=== PATIENT | male | born 1950 | race Caucasian/White ===

== ENCOUNTER 2016-12-12 10:14 | Observation (INO) | payer MEDICARE ==
[~2016-12-12] VITALS: Ht 185.4 cm; Wt 93.3 kg
[~2016-12-12 10:14] MED LIST: ABAT125S SUBQ; ASPI325T32 PO; CHOL200047 PO; CYCL1DRO BOTH_EYES; DOXY100T2 PO; HYDR200T5 PO; INSU100I13 SUBQ; INSU100I18 SUBQ; IPRA15SP NASAL; KETO120S3 EXTERNAL; LACT1CAP67 PO; LEFL20TA18 PO; METH5TAB3 PO; METO-272; OXYC1TAB24 PO; PANT40TA3 PO; POTA10TA7 PO; PRAV80TA2 PO; PRE10 PO; RNT300T PO; ROB500 PO; SITA1TAB6 PO; SULF1TAB35 PO; TAMS0.4C29 PO
[2016-12-12 10:22] VITALS: BP 99/69; PULSE 103; RESP 28; O2SAT 100
[2016-12-12 11:08] LABS: BASOPHILS % (AUTO) 1.9 % (0-3); EOSINOPHILS % (AUTO) 4.2 % (0-5); MONOCYTES % (AUTO) 12.5 % (4-12); Mean Corpuscular Volume 81.7 fL (81-100); Platelet Count 144 bil/L (150-400)
[2016-12-12 11:38] LABS: Magnesium 1.5 mg/dL (1.6-2.6)
--- NOTE | 2016-12-12 12:05 | ED.REPORT ---
HPI-NVD Date of Service Dec 12, 2016 ED Provider: Anastasia Barbour History of Present Illness: nausea , vomiting , diarrhea for 2 week. primary care is michi, last seen or Saturday, sent to the ER , given medication for nausea, not helping, zofran. no diarrhea recently. Nursing Notes Stated Complaint: DEHYDRATED/NAUSEA/VOMITING Chief Complaint: General Complaint Nursing Notes Reviewed: Yes Allergies: Coded Allergies: No Known Allergies (Verified Allergy, Unknown, 06/04/16) Scheduled Abatacept (Orencia) 125 Mg/1 Ml Syringe 125 MG SUBQ weekly on saturday Aspirin (Aspirin) 325 Mg Tablet 325 MG PO QAM Cholecalciferol (Vitamin D3) (Vitamin D3) 2,000 Unit Capsule 4,000 UNIT PO QPM Cyclosporine (Restasis) 1 Each Droperette 1 EACH BOTH_EYES BID Doxycycline Hyclate (Doxycycline Hyclate) 100 Mg Tablet 100 MG PO QPM Hydroxychloroquine Sulfate (Hydroxychloroquine Sulfate) 200 Mg Tablet 400 MG PO QPM Insulin Glargine (Lantus U100 Solostar Insulin Pen) 100 Unit/1 Ml Insuln.pen 48 UNIT SUBQ QPM-INSULIN Ketoconazole (Ketoconazole) 120 Ml Shampoo 120 ML EXTERNAL twice a week Lactobacillus Combination No.4 (Probiotic) 1 Each Capsule 1 EACH PO DAILY Leflunomide (Leflunomide) 20 Mg Tablet 20 MG PO QPM Methadone (Methadone) 5 Mg Tablet 5 MG PO TID Methocarbamol (Methocarbamol) 500 Mg Tablet 1,000 MG PO HS Metoprolol Succinate ER (Metoprolol Succinate ER) 50 Mg Tab.er.24h [address] (Pantoprazole DR) 40 Mg Tablet.dr 40 MG PO QPM Potassium Chloride ER (Klor-Con 10) 10 Meq Tablet.er 10 MEQ PO QPM Pravastatin (Pravastatin) 80 Mg Tablet 80 MG PO HS Prednisone (PredniSONE) 10 Mg Tablet 10 MG PO QAM Ranitidine (Zantac) 300 Mg Tab 300 MG PO HS Sitagliptin/Metformin 50-1000 mg (Janumet 50-1000 mg) 1 Each Tablet 1 EACH PO QPM Sulfamethoxazole/Trimeth 800-160 mg (Bactrim DS 800-160 mg) 1 Each Tablet 1 EACH PO MOWEFR Tamsulosin ER (Tamsulosin ER) 0.4 Mg Cap.er.24h 0.8 MG PO QPM Scheduled PRN Insulin Lispro (HumaLOG U100 Insulin Pen) 100 Unit/1 Ml Insuln.pen 0-8 UNITS SUBQ TIDWM PRN PRN hyperglycemia Ipratropium [place] (Ipratropium [place] 0.06% Nasal) 15 Ml [place] 1 SPRAY NASAL TID PRN PRN nasal congestion oxyCODONE-Acetaminophen 5-325 mg (oxyCODONE-Acetaminophen 5-325 mg) 1 Each Tablet 1-2 TABLET PO q6 hrs PRN PRN For Pain General Time Seen by MD: 12:02 Chief Complaint Nausea, Vomiting, Diarrhea Hx Obtained From: Patient Onset Occurred: More than a week ago... (2 weeks) Symptom Duration: Since onset Vomiting: Vomiting 4-6 episodes Diarrhea: Diarrhea 1-3 episodes (more if he attempts to eat) Past Medical History Past Medical History Notes: seen at [facility] last , sent by michi, given fluids. Started to feel better but now worse again Past Medical History MRSA Chronic back pain RA Reports: Coronary artery disease, Diabetes mellitus Past Surgical History back surgery x2 Smoking History Former Smoker Social History Alcohol Use: Denies alcohol use Drug Use: Denies drug use Other Social History: Good social support, Ambulatory Status Independent Review of Systems Basic Review of Systems Eyes: Vision NL : No dysuria, No frequency Hematologic: No bleeding Psychiatric: Normal thought content Physical Exam Initial Vital Signs Vital Signs (First) Date Time Temp Pulse Resp B/P Pulse Ox O2 Delivery O2 Flow Rate FiO2 12/12/16 10:22 36.0 103 28 99/69 100 Room Air Initial VS: Reviewed, Vital signs abnormal Head / Eyes: Atraumatic, Normocephalic, PERRL ENT: Mucous membranes moist, Conjunctiva normal, No scleral icterus Neck: Supple, Non-tender, Full range of motion Respiratory: Breath sounds normal, Clear to auscultation, No respiratory distress Cardiovascular: Regular rate & rhythm, Heart sounds normal, Intact distal pulses Back: No CVA tenderness Lymphatic: No lymphadenopathy Extremities: Vascular intact, Neuro intact, No swelling, No tenderness Skin: Warm, Dry, No cyanosis Neurologic: Alert, Oriented, Nonfocal Psychiatric: Mood/affect normal, Behavior normal, Normal thought content General/Constitutional: Awake, Alert Distress / Hydration: Positive: Distress mild Abdomen: Atraumatic, Soft, Non-tender, McBurney's non-tender Bowel Sounds / Distention: Positive: Bowel sounds hypoactive Respiratory / Chest: Atraumatic, Breath sounds NL, Breath sounds = bilat Cardiovascular: Heart rate NL, Regular rhythm, Heart sounds NL, No gallop Interpretation & Diagnostics Interpretation & Diagnostics: FINDINGS: Image quality: Excellent. ABDOMEN: Lung bases: There is a 5 mm nodule in the left lung base, unchanged since 02/20/15. Lucencies at lung bases are likely emphysematous bullae or blebs. Lung bases are clear. Heart size is normal. Solid organs: Liver and spleen are normal in size and enhancement. Gallbladder is normal. Biliary system is non dilated. Pancreas enhances normally. No adrenal nodules. Kidneys demonstrate normal size and enhancement, without hydronephrosis. Peritoneum and bowel: Bowel loops demonstrate normal wall thickness and caliber. There are scattered colonic diverticula. No evidence for active diverticulitis. Appendix is normal. No free fluid or air. Nodes and vessels: No retroperitoneal or mesenteric adenopathy by size criteria. Aorta and inferior vena cava are normal in size. Miscellaneous: No ventral hernias. PELVIS: Genitourinary: Bladder wall thickness is normal. Miscellaneous: No inguinal hernias or adenopathy. Bones: No suspicious bony lesions. No vertebral body compression fractures. There is scoliosis. Severe degenerative disc disease and facet arthropathy in lumbar spine IMPRESSION: 1. No definitive CT findings to explain vomiting and diarrhea. 2. Diverticulosis. No active diverticulitis. 3. A 5 mm nodule in the left lower lobe, which is stable since 03/19/2015 and most likely benign. Fleischner Society criteria for SOLID lung nodule followup. Nodule size (mm)Low-risk patientHigh-risk [id number] follow-up neededFollow-up at 12 mo; if no change, no further follow-up>[id number] CT at 12 mo; if no change, no further follow-up needed.Initial follow-up CT at 6-12 mo, then 18-24 mo if no change. >6-8Initial follow-up CT at 6-12 mo, then 18-24 mo if no change. Initial follow-up CT at 3-6 mo, then 9-12 mo and 24 mo if no change. >8Follow-up CT at 3, 9, 24 mo. Or PET and/or biopsy.Same as for low-risk pts. Dictated by: Marta Wakefield M.D. on 12/12/2016 at 13:47 Approved by: Marta Wakefield M.D. on 12/12/2016 at 13:57 Lab Results Interpretation Result Diagram: 12/12/16 1104 12/12/16 1104 Test 12/12/16 11:04 12/12/16 15:07 White Blood Count 5.3th/mm3 (3.8-10.1) Red Blood Count 5.64mil/mm3 (4.40-5.80) Hemoglobin 15.8g/dL (13.8-17.2) Hematocrit 46.1% (41.0-50.0) Mean Corpuscular Volume 81.7fL (81-100) Mean Corpuscular Hemoglobin 28.0pg (27.0-35.0) Mean Corpuscular Hemoglobin Concent 34.3% (32.0-37.0) Red Cell Distribution Width 14.4% (12.3-15.4) Platelet Count 144bil/L (150-400) Neutrophils (%) (Auto) 54.0% (40-74) Lymphocytes (%) (Auto) 27.2% (14-46) Monocytes (%) (Auto) 12.5% (4-12) Eosinophils (%) (Auto) 4.2% (0-5) Basophils (%) (Auto) 1.9% (0-3) Sodium Level 133mEq/L (134-144) Potassium Level 3.3mEq/L (3.5-5.2) Chloride Level 90mEq/L (97-108) Carbon Dioxide Level 24mmol/L (18-29) Blood Urea Nitrogen 17mg/dL (8-27) Creatinine 1.05mg/dL (0.76-1.27) Estimat Glomerular Filtration Rate 75mL/min (>59) Glucose Level 170mg/dL (60-99) Calcium Level 8.6mg/dL (8.5-10.1) Magnesium Level 1.5mg/dL (1.6-2.6) Total Bilirubin 0.6mg/dL (0.0-1.2) Aspartate Amino Transf (AST/SGOT) 5U/L (0-50) Alanine Aminotransferase (ALT/SGPT) 5U/L (0-44) Alkaline Phosphatase 108U/L (25-160) Total Protein 5.8g/dL (6.4-8.4) Albumin 3.4g/dL (3.4-5.0) Re-Eval/Medical Decision Med Decision/Clinical Course received 2 liters of fluid and reglan, patient reporting no improvement. With 2nd ER visit in less than a week, no findings on CT, stool studies still pending, admission is best choice. Differential Diagnosis: Positive: Appendicitis, Dehydration, Enteritis, Gastritis, Pancreatitis Discharge & Departure Impression: Primary Impression: Nausea & vomiting Vomiting type: unspecified Additional Impressions: Diarrhea Dehydration Disposition: ADMITTED TO HOSPITAL Referrals: Darrion Villa MD (PCP) EDSupervising Provider for APC: Rian Gomes MD copies to: Darrion Villa MD, Sue ARNP Dec 12, 2016 12:05
[2016-12-12] MEDS ORDERED: 0.9% Sodium Chloride 1,000 ML IV ONE ×2 (12:15→14:50)
[2016-12-12] MEDS ORDERED: MetoCLOpramide 5 mg/mL 2 mL Inj IVPUSH ONE (12:15)
[2016-12-12 13:50] VITALS: BP 128/77; PULSE 79; RESP 16; O2SAT 97
--- NOTE | 2016-12-12 13:58 | DRSVH ---
PROCEDURE: CT ABDOMEN AND PELVIS WITH CONTRAST (PNL-7102) INDICATIONS: vomiting diarrhea TECHNIQUE: After the administration of intravenous contrast, 5 mm thick sections acquired from the diaphragm to the symphysis. 5 mm coronal and sagittal reformats were acquired. For radiation dose reduction, the following was used: automated exposure control, adjustment of mA and/or kV according to patient siz e. COMPARISON: [facility], CT, CHEST W/O CONTRAST, 07/12/2011, 9:00. [facility], CT, ABD/PELVIS W/CON (PNL), 03/19/2015, 16:31. [facility], CT, CT ABD PELVIS W CON, 03/03/2016, 15:19. FINDINGS: Image quality: Excellent. ABDOMEN: Lung bases: There is a 5 mm nodule in the left lung base, unchanged since 02/20/15. Lucencies at lung bases are likely emphysematous bullae or blebs. Lung bases are clear. Heart size is normal. Solid organs: Liver and spleen are normal in size and enhancement. Gallbladder is normal. Biliary system is non dilated. Pancreas enhances normally. No adrenal nodules. Kidneys demonstrate normal size and enhancement, without hydronephrosis. Peritoneum and bowel: Bowel loops demonstrate normal wall thickness and caliber. There are scattere d colonic diverticula. No evidence for active diverticulitis. Appendix is normal. No free fluid or ai r. Nodes and vessels: No retroperitoneal or mesenteric adenopathy by size criteria. Aorta and inferior vena cava are normal in size. Miscellaneous: No ventral hernias. PELVIS: Genitourinary: Bladder wall thickness is normal. Miscellaneous: No inguinal hernias or adenopathy. Bones: No suspicious bony lesions. No vertebral body compression fractures. There is scoliosis. Se dario degenerative disc disease and facet arthropathy in lumbar spine IMPRESSION: 1. No definitive CT findings to explain vomiting and diarrhea. 2. Diverticulosis. No active diverticulitis. 3. A 5 mm nodule in the left lower lobe, which is stable since 03/19/2015 and most likely benign. Fleischner Society criteria for SOLID lung nodule followup. Nodule size (mm)Low-risk patientHigh-risk [id number] follow-up neededFollow-up at 12 mo; if no malik e, no further follow-up>[id number] CT at 12 mo; if no change, no further follow-up needed.Initial f ollow-up CT at 6-12 mo, then 18-24 mo if no change. >6-8Initial follow-up CT at 6-12 mo, then 18-24 mo if no change. Initial follow-up CT at 3-6 mo, then 9-12 mo and 24 mo if no change. >8Follow-up CT at 3, 9, 24 mo. Or PET and/or biopsy.Same as for low-risk pts. Dictated by: Marta Wakefield M.D. on 12/12/2016 at 13:47 Approved by: Marta Wakefield M.D. on 12/12/2016 at 13:57
[2016-12-12] MEDS ORDERED: D5 0.45% NaCl + KCl 20 mEq/L 1,000 ML IV SCH (15:32)
[2016-12-12 15:35] VITALS: BP 124/74; PULSE 79; RESP 18; O2SAT 98
[2016-12-12] MEDS ORDERED: Ondansetron 2 mg/mL 2 mL Inj IVPUSH PRN ×2 (15:35→18:10)
[2016-12-12] MEDS ORDERED: Alum-Mag Hydrox-Simeth 30 mL Suspension PO PRN ×2 (15:35→18:10)
[2016-12-12 15:48] VITALS: BP 108/76; PULSE 86; RESP 18; O2SAT 100
--- NOTE | 2016-12-12 16:30 | NUR ---
Admission Patient admitted to [facility] [place] accompanied by . Oriented to room and unit. Denies any N/V at this time. On clear liquid diet. Pain level of 4/10. Alert and oriented x3. SBA to the bathroom. Patient made comfortable, will continue to monitor.
[2016-12-12] MEDS ORDERED: Magnesium Sulf 2 Gm/50mL Water 2 GM in IV Premix 1 EACH IV ONE (18:10)
[2016-12-12] MEDS ORDERED: KCl 40 mEq/D5W 500 mL 40 MEQ in IV Premix 500 EACH IV ONE (18:10)
[2016-12-12] MEDS ORDERED: Polyethylene Glycol (PEG) 17 Gm Powder PO PRN (18:10)
[2016-12-12 18:25] VITALS: BP 127/66; PULSE 84; RESP 18; O2SAT 100
[2016-12-12] MEDS ORDERED: Ipratropium 0.03% 30 mL Nasal Spray Bottle NASAL PRN (18:25)
--- NOTE | 2016-12-12 18:55 | PCM.HPMED ---
Subjective Date of Service Dec 12, 2016 Primary Provider: Admitting Physician: Tim Rocha MD Primary Care Physician: Darrion Villa MD Attending Physician: Tim Rocha MD Chief Complaint: nausea, vomiting, diarrhea History of Present Illness: 66 year old male with complicated past medical history notable for diabetes mellitus and rheumatoid arthritis presents with complaints of intractable nausea , vomiting and diarrhea for the past 12 days. [place] [facility] [place] and was treated with IVF in the ED which made him feel better at the time but his symptoms soon returned after going home. He was instructed by his PCP to return to ED today. He reports some associated chills but no fever. He denies any hematemesis, coffee ground emesis, hematochezia, melena, or abdominal pain. He denies any recent travel, change in medication, or sick contacts. He also reports some lightheadedness with sitting up or standing but denies any loss of consciousness. Allergies Coded Allergies: No Known Allergies (Verified Allergy, Unknown, 06/04/16) Home Medications Sulfamethoxazole/Trimeth = (Bactrim DS 800-160 mg) 1 Each PO MOWEFR Tamsulosin ER 0.4 Mg Cap.Er.24h 0.8 Mg PO QPM 30 Days Metoprolol Succinate ER 50 Mg Tab.Er.24h 50 Mg QPM Pravastatin 80 Mg Tablet 80 Mg PO HS Methadone 5 Mg Tablet 5 Mg PO TID oxyCODONE-Acetaminophen 5-325 mg 1-2 Tablet PO q6 hrs PRN Potassium Chloride ER 10 Meq Tablet.Er (Klor-Con 10) 10 Meq PO QPM Cyclosporine (Restasis) 1 Each BOTH_EYES BID Ipratropium [place] 15 Ml [place] (Ipratropium [place] 0.06% Nasal) 1 [place] NASAL TID PRN Lactobacillus Combination No.4 (Probiotic) 1 Each PO DAILY Pantoprazole DR 40 Mg Tablet.Dr 40 Mg PO QPM Ranitidine 300 Mg Tab 300 Mg PO HS Insulin Glargine 100 Unit/1 Ml Insuln.Pen (Lantus U100 Solostar Insulin Pen) 48 Unit SUBQ QPM Insulin Lispro 100 Unit/1 Ml Insuln.Pen (HumaLOG U100 Insulin Pen) 0-8 Units SUBQ TIDWM PRN Cholecalciferol (Vitamin D3) 4,000 Unit PO QPM Leflunomide 20 Mg PO QPM Exam Vital Signs & I/O Vital Sign- Last 8 Hours Date Time Temp Pulse Resp B/P Pulse Ox O2 Delivery O2 Flow Rate FiO2 12/12/16 18:25 36.6 84 18 127/66 100 Room Air 12/12/16 15:48 36.6 86 18 108/76 100 Room Air 12/12/16 15:35 79 18 124/74 98 Room Air 12/12/16 13:50 36.9 79 16 128/77 97 Room Air Lab & Micro Results Laboratory Tests Test 12/12/16 11:04 12/12/16 15:07 White Blood Count 5.3th/mm3 (3.8-10.1) Red Blood Count 5.64mil/mm3 (4.40-5.80) Hemoglobin 15.8g/dL (13.8-17.2) Hematocrit 46.1% (41.0-50.0) Mean Corpuscular Volume 81.7fL (81-100) Mean Corpuscular Hemoglobin 28.0pg (27.0-35.0) Mean Corpuscular Hemoglobin Concent 34.3% (32.0-37.0) Red Cell Distribution Width 14.4% (12.3-15.4) Platelet Count 144bil/L (150-400) Neutrophils (%) (Auto) 54.0% (40-74) Lymphocytes (%) (Auto) 27.2% (14-46) Monocytes (%) (Auto) 12.5% (4-12) Eosinophils (%) (Auto) 4.2% (0-5) Basophils (%) (Auto) 1.9% (0-3) Sodium Level 133mEq/L (134-144) Potassium Level 3.3mEq/L (3.5-5.2) Chloride Level 90mEq/L (97-108) Carbon Dioxide Level 24mmol/L (18-29) Blood Urea Nitrogen 17mg/dL (8-27) Creatinine 1.05mg/dL (0.76-1.27) Estimat Glomerular Filtration Rate 75mL/min (>59) Glucose Level 170mg/dL (60-99) Lactic Acid Level 3.3mmol/L (0.4-2.0) 1.2mmol/L (0.4-2.0) Calcium Level 8.6mg/dL (8.5-10.1) Magnesium Level 1.5mg/dL (1.6-2.6) Total Bilirubin 0.6mg/dL (0.0-1.2) Aspartate Amino Transf (AST/SGOT) 5U/L (0-50) Alanine Aminotransferase (ALT/SGPT) 5U/L (0-44) Alkaline Phosphatase 108U/L (25-160) Total Protein 5.8g/dL (6.4-8.4) Albumin 3.4g/dL (3.4-5.0) Microbiology 12/12/16 Campylobacter (PCR) - Final, Complete Not Detected 12/12/16 Clostridium difficile Toxin A&B (M) - Final, Complete Not Detected 12/12/16 Plesiomonas shigelloides (PCR) - Final, Complete Not Detected 12/12/16 Salmonella (PCR)(KRIS) - Final, Complete Not Detected 12/12/16 Yersinia enterocolitica (PCR) - Final, Complete Not Detected 12/12/16 Vibrio Species (PCR) - Final, Complete Not Detected 12/12/16 Vibrio Cholerae (PCR) - Final, Complete Not Detected 12/12/16 Enteroaggregative E. coli (PCR) - Final, Complete Not Detected 12/12/16 Enteropathogenic E. coli (PCR) - Final, Complete Not Detected 12/12/16 Enterotoxigenic E. coli (PCR) - Final, Complete Not Detected 12/12/16 E. coli Shiga-like Toxin (PCR) - Final, Complete Not Detected 12/12/16 Escherichia coli 0157 (PCR) - Final, Complete Not Detected 12/12/16 Enteroinvasive E. coli/Shigella PCR - Final, Complete Not Detected 12/12/16 Cryptosporidium (PCR) - Final, Complete Not Detected 12/12/16 Cyclospora cayetanensis (PCR) - Final, Complete Not Detected 12/12/16 Entamoeba histolytica (PCR) - Final, Complete Not Detected 12/12/16 Giardia lamblia (PCR) - Final, Complete Not Detected 12/12/16 Adenovirus Type F 40/41 (PCR) - Final, Complete Not Detected 12/12/16 Astrovirus (PCR) - Final, Complete Not Detected 12/12/16 Norovirus (PCR) - Final, Complete Not Detected 12/12/16 Rotavirus A (PCR) - Final, Complete Not Detected 12/12/16 Sapovirus I/II/IV/V (PCR) - Final, Complete Result Diagram: 12/12/16 1104 12/12/16 1104 Review of Systems: Constitutional: Negative, except as otherwise mentioned in the history above. Ophthalmologic: Negative, except as otherwise mentioned in the history above. Cardiovascular: Negative, except as otherwise mentioned in the history above. Respiratory: Negative, except as otherwise mentioned in the history above. Gastrointestinal: Negative, except as otherwise mentioned in the history above. Genitourinary: Negative, except as otherwise mentioned in the history above. Musculoskeletal: Negative, except as otherwise mentioned in the history above. Neurological: Negative, except as otherwise mentioned in the history above. Psychiatric: Negative, except as otherwise mentioned in the history above. Hematologic/Lymphatic: Negative, except as otherwise mentioned in the history above. Allergic/Immunologic: Negative, except as otherwise mentioned in the history above. PMH 1. Coronary artery disease, status post stent deployment in 2001. 2. Rheumatoid arthritis. 3. Benign prostatic hypertrophy. 4. Diabetes mellitus type 2. 5. Chronic low back pain. 6. Hyperlipidemia. 7. Gastroesophageal reflux disease. 8. Hypertension. 9. Ocular rosacea. 10. Vitamin D deficiency. 11. Hospitalization for MRSA toe infection in April 2014. 12. History of pericarditis. 13. History of diverticulitis. 14. Status post carpal tunnel surgery bilaterally. 15. Status post laminectomy at L4, L5. 16. Incision and drainage of the left 3rd toe in April 2014. Family History Significant for myocardial infarction in his father and pulmonary embolism in his mother. Social History Hx Alcohol Use: Yes Alcoholic Drinks Per Day: 1-2 a week. Hx Substance Use: No Smoking Status: Former Smoker (quit more than 20 years ago) Exam Vital Signs Vital Sign - Last Date Time Temp Pulse Resp B/P Pulse Ox O2 Delivery O2 Flow Rate FiO2 12/12/16 18:25 36.6 84 18 127/66 100 Room Air General: Alert, Oriented X3, Cooperative, No Acute Distress Head: Normal Eyes: PERRLA, EOMI, Scleral Anicteric Nose: Mucous Membr Moist/[place] Mouth: Mucous Membr Moist/[place] Neck: Supple Chest & Lungs: Chest Wall Normal, Clear to auscultation & percussion Cardiovascular: Regular Rate/Rhythm Pulses: NL carotid, radial, femoral, DP, PT Abdomen: Non-tender, Non-distended, Normoactive bowel tones, Soft Extremities: No cyanosis/clubbing/edma bilat Skin: Other (no ulcer/rash) Neurological: Grossly Neurologically Intact, Cranial Nerves 2-12 Intact, Normal Speech Lymphatic: Other Lymph Nodes (no lymphadenopathy) Lab and Diagnostics Result Diagram: 12/12/16 1104 12/12/16 1104 X-Rays, CTs and MRIs Date of Service: 12/12/16 1215 PROCEDURE: CT ABDOMEN AND PELVIS WITH CONTRAST (PNL-7102) IMPRESSION: 1. No definitive CT findings to explain vomiting and diarrhea. 2. Diverticulosis. No active diverticulitis. 3. A 5 mm nodule in the left lower lobe, which is stable since 03/19/2015 and most likely benign. Fleischner Society criteria for SOLID lung nodule followup. Nodule size (mm)Low-risk patientHigh-risk [id number] follow-up neededFollow-up at 12 mo; if no change, no further follow-up>6-4Aldrql-pu CT at 12 mo; if no change, no further follow-up needed.Initial follow-up CT at 6-12 mo, then 18-24 mo if no change. >6-8Initial follow-up CT at 6-12 mo, then 18-24 mo if no change. Initial follow-up CT at 3-6 mo, then 9-12 mo and 24 mo if no change. > 8Follow-up CT at 3, 9, 24 mo. Or PET and/or biopsy.Same as for low-risk pts. Dictated by: Marta Wakefield M.D. on 12/12/2016 at 13:47 Approved by: Marta Wakefield M.D. on 12/12/2016 at 13:57 Assessment & Plan 66 year old male with complicated past medical history notable for diabetes mellitus and rheumatoid arthritis presents with complaints of intractable nausea , vomiting and diarrhea for the past 12 days. # Acute Nausea, vomiting and diarrhea, present on admission. - unclear etiology. ? infection vs possible diabetic gastroparesis vs other - f/u pending stool PCR - c/w supportive care including IVF, antiemetics and pain control as needed - clear liquid diet and advance as tolerated # Diabetes mellitus type 2 -will hold the patient's long-acting insulin until able to tolerate PO diet - cover with ISS for now - check HgA1C # Rheumatoid arthritis. chronic. presume stable - c/w home meds - hold prophylactic Bactrim for now # Acute on chronic lumbago - due for back surgery in coming days - c/w home dose methadone - c/w supportive care - PT eval once symptoms more improved # History of coronary artery disease. stable - c/w home meds as tolerated # Acute hypokalemia and hypomagnesemia. poa - replete and f/u # Acute lactic acidosis. poa. - Resolved with IVF now. # History of BPH - c/w Flomax - check UA Expected length of hospital stay at this time is likely 2 midnights but patient will be admitted as observation status for now. Time spent 60 min Rod Guerrero Dec 12, 2016 18:55
[2016-12-12] MEDS ORDERED: COLC0.6C3 PO (19:20)
[2016-12-12] MEDS ORDERED: GABA-502 PO (19:24)
[2016-12-12] MEDS ORDERED: LEVO50TA6 PO (19:26)
[2016-12-12] MEDS ORDERED: MINO100C3 PO (19:28)
[2016-12-12] MEDS ORDERED: POLY17PO6 PO (19:29)
[2016-12-12] MEDS ORDERED: TORS20TA3 PO (19:30)
[2016-12-12] MEDS: Dextrose 5% 0.45% NaCl 1,000 ML IV SCH (20:29)
[2016-12-12] MEDS: RESTASIS OPTH BOTH_EYES SCH (20:30)
[2016-12-12] MEDS: Insulin Human REGular 300 Unit/3 mL Inj SUBQ SCH (21:07)
[2016-12-12 21:08] LABS: APPEARANCE,URINE CLEAR (CLEAR,HAZY); COLOR,URINE YELLOW (YELLOW); OCCULT BLOOD,URINE NEGATIVE (NEGATIVE); UROBILINOGEN,URINE NORMAL (NORMAL)
[2016-12-12 21:25] VITALS: BP 134/72; PULSE 75; RESP 16; O2SAT 98
--- NOTE | 2016-12-12 21:25 | NUR ---
SCD Pt refused to wear SCDs after physical assessment given. "It hurts, I forgot to tell you that." Ambulates independently in room with a steady gait. Will continue ongoing care.
[2016-12-13 03:06] VITALS: BP 134/74; PULSE 109; RESP 18; O2SAT 96
[2016-12-13 05:41] VITALS: BP 122/72; PULSE 76; RESP 18; O2SAT 97
[2016-12-13] MEDS: Dextrose 5% 0.45% NaCl 1,000 ML IV SCH ×2 (06:22→22:02)
[2016-12-13] MEDS: Insulin Human REGular 300 Unit/3 mL Inj SUBQ SCH ×4 (07:30→22:00)
[2016-12-13 08:06] LABS: BASOPHILS % (AUTO) 1.5 % (0-3); MONOCYTES % (AUTO) 15.5 % (4-12); Mean Corpuscular Hemoglobin 28.2 pg (27.0-35.0); Mean Corpuscular Volume 84.1 fL (81-100); NEUTROPHILS % (AUTO) 49.3 % (40-74); Platelet Count 104 bil/L (150-400)
[2016-12-13 08:17] LABS: INR 1.07 ratio
[2016-12-13 08:20] VITALS: BP 132/76; PULSE 76
[2016-12-13] MEDS: MeTOProlol XL 50 mg ER24 Tablet PO SCH (08:25)
[2016-12-13] MEDS: Pantoprazole 4 mg/mL 10 mL Inj IVPUSH SCH (08:25)
[2016-12-13 08:29] LABS: Magnesium 1.8 mg/dL (1.6-2.6)
[2016-12-13] MEDS: RESTASIS OPTH BOTH_EYES SCH ×2 (08:30→20:30)
--- NOTE | 2016-12-13 11:32 | NUR ---
Case Management: BRANDT and Medicare Part D info given and explained to pt and his at bedside at 11:05 am. Copies given to pt and original BRANDT placed in hard chart. JOSE Resendez RN
[2016-12-13 12:50] VITALS: BP 131/75; PULSE 61; RESP 19; O2SAT 100
--- NOTE | 2016-12-13 14:01 | NUR ---
NUTRITION ASSESSMENT: ASSESS: Pt is a 66yo M admitted for N/V/Diarrhea. Pt has been experiencing these symptoms for 2 weeks and has reportedly only been drinking juice, water and Ensure. When spoke with pt he was eating a turkey sandwich with soup. He stated that this was his first solid food meal. PMHX: DM, RA, CAD, HLD, GERD, HTN, Diverticulitis LABS: Reviewed. Glu 132, Ca 7.6, Alb 3.4, A1C 6.1 MEDS: Reviewed. GI: BM 12/13 SKIN: Chet 19 CURRENT WTS: 93.3kg, BMI 27.1kg/m2 DIET: Diabetic. PO 75%x1 meal of CL diet. EST. NEEDS: Kcals: 2330-2800kcal/day (25-30kcal/kg) Pro: 95-110g/day (1.0-1.2g/kg) NUTRITION DIAGNOSIS: 1.) Inadequate oral intake related to altered GI function as evidence by persistent n/v and pt reporting only eating CLx2 weeks prior to admit. NUTRITION INTERVENTION: 1.) Spoke w/ pt and briefly about foods to eat and foods to avoid when experiencing n/v. Handout was provided. Pt at this time does not want any snacks/supps. He wants to see how he is tolerates food first. MONITOR / EVAL: PO, GI, Diet abraham, labs, POC, nutrition status. Will continue to monitor per high nutrition risk guidelines
--- NOTE | 2016-12-13 15:04 | PCM.PNMED ---
Subjective Date of Service Dec 13, 2016 Subjective says feeling much better today. no diarrhea today. some nausea but no vomiting today Exam Vital Signs Vital Sign - Last Date Time Temp Pulse Resp B/P Pulse Ox O2 Delivery O2 Flow Rate FiO2 12/13/16 12:50 36.8 61 19 131/75 100 Room Air Intake and Output 12/12/16 12/12/16 12/13/16 Cumulative From/Thru 15:00 23:00 07:00 12/12/16 10:22 - 12/13/16 05:31 Intake Total 1000 ml 615 ml 1603 ml 3218 ml Output Total 200 ml 380 ml 580 ml Balance 1000 ml 415 ml 1223 ml 2638 ml Intake Oral 400 ml 400 ml IV Total 1000 ml 215 ml 1203 ml 2418 ml TPN/PPN 400 ml 400 ml Output Urine Total 200 ml 380 ml 580 ml Exam General: Alert, Cooperative, No Acute Distress Head: Normal Eyes: Scleral Anicteric Nose: Mucous Membr Moist/[place] Mouth: Mucous Membr Moist/[place] Neck: Supple Chest & Lungs: Chest Wall Normal, Clear to auscultation bilat Cardiovascular: Regular Rate/Rhythm Abdomen: Non-tender, Non-distended, Normoactive bowel tones, Soft Extremities: No cyanosis/clubbing/edema bilat Neurological: Grossly Neurologically Intact, Normal Speech IVs and Medications Medications Reviewed: Medications were reviewed in detail Lab and Diagnostics Result Diagram: 12/13/16 0750 12/13/16 0750 X-Rays, CTs and MRIs Date of Service: 12/12/16 1215 PROCEDURE: CT ABDOMEN AND PELVIS WITH CONTRAST ([id number]) IMPRESSION: 1. No definitive CT findings to explain vomiting and diarrhea. 2. Diverticulosis. No active diverticulitis. 3. A 5 mm nodule in the left lower lobe, which is stable since 03/19/2015 and most likely benign. Fleischner Society criteria for SOLID lung nodule followup. Nodule size (mm)Low-risk patientHigh-risk [id number] follow-up neededFollow-up at 12 mo; if no change, no further follow-up>[id number] CT at 12 mo; if no change, no further follow-up needed.Initial follow-up CT at 6-12 mo, then 18-24 mo if no change. >6-8Initial follow-up CT at 6-12 mo, then 18-24 mo if no change. Initial follow-up CT at 3-6 mo, then 9-12 mo and 24 mo if no change. > 8Follow-up CT at 3, 9, 24 mo. Or PET and/or biopsy.Same as for low-risk pts. Dictated by: Marta Wakefield M.D. on 12/12/2016 at 13:47 Approved by: Marta Wakefield M.D. on 12/12/2016 at 13:57 Assessment & Plan 66 year old male with complicated past medical history notable for diabetes mellitus and rheumatoid arthritis presents with complaints of intractable nausea , vomiting and diarrhea for the past 12 days. # Acute Nausea, vomiting and diarrhea, present on admission. improving with hydration - unclear etiology. ? infection vs possible diabetic gastroparesis vs other - stool PCR negative - c/w supportive care including IVF, antiemetics and pain control as needed - advance as tolerated # Diabetes mellitus type 2 - will hold the patient's long-acting insulin until able to tolerate PO diet - continue to cover with ISS for now - HgA1C 6.1 # Rheumatoid arthritis. chronic. presume stable - c/w home meds - hold prophylactic Bactrim for now # Acute on chronic lumbago - due for back surgery in coming days - c/w home dose methadone - c/w supportive care - PT eval # History of coronary artery disease. stable - c/w home meds as tolerated # Acute hypokalemia and hypomagnesemia. poa - replete and f/u # Acute lactic acidosis. poa. - Resolved with IVF now. # History of BPH - c/w Flomax Dispo: possibly home in am if symptoms continue to improve and able to tolerate general diet GI Prophylaxis: Proton Pump Inhibitor Resuscitation Status: CPR: Attempt Resuscitation (discussed and verified with patient) Time spent 25 min Rod Guerrero Dec 13, 2016 15:04
[2016-12-13] MEDS ORDERED: Potassium Chloride 20 mEq SR Tablet PO ONE (15:05)
--- NOTE | 2016-12-13 17:25 | NUR ---
Social Work Initial Assessment: SW spoke to patient and Charlene at bedside to discuss discharge plan. Patient is a 66 year old male admitted on 12/12/16 for vomiting and diarrhea. Patient PCP as MD Villa. Patient payer as [employer]. Patient resides in [place] in a single [facility] home. Patient states being independent with needs and states assists with care needs. [facility] choice [facility]. Patient has no previous HHC or SNF history. Patient and states having AD and copy to be provided. Patient has a walker for use at home. Patient denied any discharge needs at this time. SW to follow. PLAN: Home with , pending clinical course. No anticipated discharge needs at this time. SW to follow. Alyssa GARCIA Addendum: 12/13/16 at 1729 by [facility] Amended: Links added.
[2016-12-13] MEDS: LEFLUNOMIDE 20 MG PO SCH (17:30)
[2016-12-13 18:06] VITALS: BP 135/73; PULSE 67; RESP 18; O2SAT 99
[2016-12-13 20:36] VITALS: BP 138/81; PULSE 77; RESP 18; O2SAT 95
[2016-12-14 02:05] VITALS: BP 125/72; PULSE 72; RESP 16; O2SAT 95
--- NOTE | 2016-12-14 06:14 | NUR ---
PT has slept well t/o the night. Pain moderately managed with scheduled meds and has not needed anything for BTP. V/S WNL. PT up I to BR. Fluids infusing per order. Taking go po fluids. PT reports some neuropathy in BLE. However, neuro exam was negative as far as strength. PT states that when he gets up his "RLE feels like it is going to collapse." PT refuses to wear his SCD's and understands the risks of not doing so. BG did not need coverage at HS. Will CTM progress.
[2016-12-14 06:44] VITALS: BP 124/77; PULSE 76; RESP 18; O2SAT 95
[2016-12-14] MEDS: Insulin Human REGular 300 Unit/3 mL Inj SUBQ SCH ×4 (07:30→20:39)
[2016-12-14 07:40] LABS: BASOPHILS % (AUTO) 1.5 % (0-3); EOSINOPHILS % (AUTO) 12.2 % (0-5); MONOCYTES % (AUTO) 13.4 % (4-12); Mean Corpuscular Hemoglobin 28.4 pg (27.0-35.0); Mean Corpuscular Volume 85.3 fL (81-100); NEUTROPHILS % (AUTO) 44.6 % (40-74); Platelet Count 103 bil/L (150-400)
[2016-12-14 08:11] LABS: Magnesium 1.7 mg/dL (1.6-2.6)
[2016-12-14] MEDS: RESTASIS OPTH BOTH_EYES SCH ×2 (08:30→20:30)
[2016-12-14 08:38] VITALS: BP 137/79; PULSE 80; RESP 18; O2SAT 95
[2016-12-14] MEDS: MeTOProlol XL 50 mg ER24 Tablet PO SCH (08:40)
[2016-12-14] MEDS: Pantoprazole 4 mg/mL 10 mL Inj IVPUSH SCH (08:40)
[2016-12-14] MEDS ORDERED: Magnesium Sulf 4 Gm/100 mL H2O 4 GM in IV Premix 1 EACH IV ONE (09:35)
[2016-12-14] MEDS: Dextrose 5% 0.45% NaCl 1,000 ML IV SCH (11:00)
[2016-12-14 15:04] VITALS: BP 116/66; PULSE 71; RESP 18; O2SAT 98
--- NOTE | 2016-12-14 15:08 | NUR ---
Social work note - Continued d.c planning IT SUPPORT SPECIALIST met with pt and Pt's - Pt states he is feeling better, MD identifies that he will likely be in the hospital 1-2 more days. Pt plans to go home with , denies any further d/c needs. IT SUPPORT SPECIALIST will follow if needs arise. Plan: Home with in POV. ALYCE Jimenez
[2016-12-14] MEDS: LEFLUNOMIDE 20 MG PO SCH (17:30)
[2016-12-14 19:23] VITALS: BP 133/74; PULSE 77; RESP 17; O2SAT 97
--- NOTE | 2016-12-15 00:26 | PCM.PNMED ---
Subjective Date of Service Dec 14, 2016 Subjective The patient continues to complain of metallic taste in his mouth. He also continues to complain of nausea but no vomiting today. He complains of fairly poor appetite however. He still does not feel well. Exam Vital Signs Vital Sign - Last Date Time Temp Pulse Resp B/P Pulse Ox O2 Delivery O2 Flow Rate FiO2 12/14/16 19:23 37.0 77 17 133/74 97 Room Air Intake and Output 12/14/16 12/14/16 12/15/16 Cumulative From/Thru 15:00 23:00 07:00 12/12/16 10:22 - 12/14/16 19:37 Intake Total 2065 ml 7710 ml Output Total 1230 ml Balance 2065 ml 6480 ml Intake Oral 390 ml 1250 ml IV Total 1675 ml 6060 ml TPN/PPN 400 ml Output Urine Total 1230 ml # Voids 4 8 # Bowel Movements 1 1 Exam General: Patient is in no apparent distress. HEENT: Head is atraumatic and normocephalic. Eyes: Pupils are equally round and reactive to light and accommodation. Extraocular muscles are intact. Sclera are white, anicteric. Subconjunctival mucosa is pink. Ears and nose are unremarkable. Oropharynx: There is no mucosal lesions, there is no thrush, there is no pharyngitis. Neck: Is supple, there are no nodes, or masses or tenderness. Chest: Is clear to auscultation and percussion. There are no rales, rhonchi, wheezes or rubs. Heart: Rate, rhythm is regular. There is no murmur, rub or gallop. Abdomen: Good bowel sounds are present. Abdomen is mildly obese, soft, nontender, no organomegaly or masses were appreciated. Extremities: Are symmetrical and well perfused. There is no edema, there is no cellulitis, no rash. Neurologic: There are no focal neurological deficits. Cranial nerves II through XII are intact. There are no sensory or motor deficits. Psychiatric: Patients mood is calm and shows no sign of agitation. Genital: Deferred Rectal: Deferred Lab and Diagnostics Result Diagram: 12/14/16 0720 12/14/16 0720 Microbiology Stool for gastrointestinal PCR panel is negative X-Rays, CTs and MRIs Date of Service: 12/12/16 1215 PROCEDURE: CT ABDOMEN AND PELVIS WITH CONTRAST ([id number]) IMPRESSION: 1. No definitive CT findings to explain vomiting and diarrhea. 2. Diverticulosis. No active diverticulitis. 3. A 5 mm nodule in the left lower lobe, which is stable since 03/19/2015 and most likely benign. Fleischner Society criteria for SOLID lung nodule followup. Nodule size (mm)Low-risk patientHigh-risk [id number] follow-up neededFollow-up at 12 mo; if no change, no further follow-up>[id number]-[id number] CT at 12 mo; if no change, no further follow-up needed.Initial follow-up CT at 6-12 mo, then 18-24 mo if no change. >6-8Initial follow-up CT at 6-12 mo, then 18-24 mo if no change. Initial follow-up CT at 3-6 mo, then 9-12 mo and 24 mo if no change. > 8Follow-up CT at 3, 9, 24 mo. Or PET and/or biopsy.Same as for low-risk pts. Dictated by: Marta Wakefield M.D. on 12/12/2016 at 13:47 Approved by: Marta Wakefield M.D. on 12/12/2016 at 13:57 Assessment & Plan 66 year old male with complicated past medical history notable for diabetes mellitus and rheumatoid arthritis presents with complaints of intractable nausea , vomiting and diarrhea for the past 12 days. # Acute Nausea, vomiting and diarrhea, present on admission. improving with hydration - unclear etiology. ? infection vs possible diabetic gastroparesis vs other - stool PCR negative - c/w supportive care including IVF, antiemetics and pain control as needed - advance as tolerated # Diabetes mellitus type 2 - will hold the patient's long-acting insulin until able to tolerate PO diet - continue to cover with ISS for now - HgA1C 6.1 # Rheumatoid arthritis. chronic. presume stable - c/w home meds - hold prophylactic Bactrim for now # Acute on chronic lumbago - due for back surgery in coming days - c/w home dose methadone - c/w supportive care - PT eval # History of coronary artery disease. stable - c/w home meds as tolerated # Acute hypokalemia and hypomagnesemia. poa - replete and f/u # Acute lactic acidosis. poa. - Resolved with IVF now. # History of BPH - c/w Flomax Dispo: possibly home in am if symptoms continue to improve and able to tolerate general diet Pain Evaluation: Adequate Pain Control GI Prophylaxis: Proton Pump Inhibitor VTE Prophylaxis: Sub-Q Enoxaparin Resuscitation Status: CPR: Attempt Resuscitation (discussed and verified with patient) Main Mack MD Dec 15, 2016 00:26
[2016-12-15] MEDS: Dextrose 5% 0.45% NaCl 1,000 ML IV SCH ×2 (02:34→05:00)
[2016-12-15 03:02] VITALS: BP 104/71; PULSE 90; RESP 20; O2SAT 95
--- NOTE | 2016-12-15 06:06 | NUR ---
Pain/nausea Continues to have pain though declines morphine wants to stick with just castillo methadone, did accept tylenol once no nausea reported through night
[2016-12-15 06:16] LABS: EOSINOPHILS % (AUTO) 10.5 % (0-5); MONOCYTES % (AUTO) 14.2 % (4-12); Mean Corpuscular Hemoglobin 29.7 pg (27.0-35.0); Mean Corpuscular Volume 81.7 fL (81-100); NEUTROPHILS % (AUTO) 48.3 % (40-74); Platelet Count 123 bil/L (150-400)
[2016-12-15 06:32] LABS: Magnesium 1.9 mg/dL (1.6-2.6)
[2016-12-15 06:48] VITALS: BP 121/69; PULSE 68; RESP 17; O2SAT 96
[2016-12-15] MEDS: Insulin Human REGular 300 Unit/3 mL Inj SUBQ SCH ×2 (07:30→11:30)
[2016-12-15 07:55] VITALS: BP 110/74; PULSE 79; RESP 14; O2SAT 97
[2016-12-15] MEDS: MeTOProlol XL 50 mg ER24 Tablet PO SCH (07:59)
[2016-12-15] MEDS: Pantoprazole 4 mg/mL 10 mL Inj IVPUSH SCH (07:59)
[2016-12-15] MEDS: RESTASIS OPTH BOTH_EYES SCH (08:03)
--- NOTE | 2016-12-15 09:26 | NUR ---
Refused Lovenox Pt refused Lovenox this AM stating he has back surgery scheduled on Saturday and was instructed to not take blood thinning medication, including his ASA, for 1 week prior to surgery. Also stated he "feels better" and is hoping to D/C home today. Pt agreed to get OOB and walk the [place] when his spouse arrives. WCTM.
--- NOTE | 2016-12-15 11:10 | NUR ---
Social Work: Discharge D: Pt discussed in am rounds. Pt is medically stable for discharge home today. EMR reviewed; pt is ambulating I during admission. OPERATIONS LIAISON met with pt at bedside to reassess and discuss any unmet needs. Pt and decline any home needs. Pt's will transport. A: Pt who is I at baseline. P: Anticipate pt to discharge home today via POV; no sw barriers identified. JOSE Pak
--- NOTE | 2016-12-15 11:17 | PCM.DIMED ---
Discharge Instructions Date of Service Dec 15, 2016 Dates of Hospitalization Dec 12, 2016 at 15:30 Diet Heart Healthy Activity No restrictions (MAY RESUME USUAL ACTIVITIES GRADUALLY TOLERATED) Call your provider Fever or Chills, Shortness of breath, Bleeding, Chest pain, Vomitting, Excessive diarrhea, Weakness (unilateral) Patient Instructions Follow-up Provider: Darrion Villa MD Follow-up with PCP in: 1 week Main Mack MD Dec 15, 2016 11:17
--- NOTE | 2016-12-15 13:56 | NUR ---
D/C'd Pt D/C'd home with spouse, left on foot, all personal belongings taken with pt and spouse. Pt stated and signed understanding of discharge information and when to see MD for follow up. IV D/C'd intact.
--- NOTE | 2016-12-15 21:56 | PCM.DC.MED ---
Discharge Summary Date of Service Dec 15, 2016 Dates of Hospitalization Date of Hospital Admission Dec 12, 2016 at 15:30 Date of Discharge: Dec 15, 2016 Providers: Admitting Physician: Tim Rocha MD Primary Care Physician: Darrion Villa MD Attending Physician: Tim Rocha MD Diagnosis at Time of Discharge Diagnosis at Time of Discharge Gastroenteritis Procedures XRay, CTs & MRIs Date of Service: 12/12/16 1215 PROCEDURE: CT ABDOMEN AND PELVIS WITH CONTRAST ([id number]) IMPRESSION: 1. No definitive CT findings to explain vomiting and diarrhea. 2. Diverticulosis. No active diverticulitis. 3. A 5 mm nodule in the left lower lobe, which is stable since 03/19/2015 and most likely benign. Fleischner Society criteria for SOLID lung nodule followup. Nodule size (mm)Low-risk patientHigh-risk [id number] follow-up neededFollow-up at 12 mo; if no change, no further follow-up>[id number] CT at 12 mo; if no change, no further follow-up needed.Initial follow-up CT at 6-12 mo, then 18-24 mo if no change. >6-8Initial follow-up CT at 6-12 mo, then 18-24 mo if no change. Initial follow-up CT at 3-6 mo, then 9-12 mo and 24 mo if no change. > 8Follow-up CT at 3, 9, 24 mo. Or PET and/or biopsy.Same as for low-risk pts. Dictated by: Marta Wakefield M.D. on 12/12/2016 at 13:47 Approved by: Marta Wakefield M.D. on 12/12/2016 at 13:57 Brief History 66 year old male with complicated past medical history notable for diabetes mellitus and rheumatoid arthritis presents with complaints of intractable nausea , vomiting and diarrhea for the past 12 days. He presented to [facility] five days ago and was treated with IVF in the ED which made him feel better at the time but his symptoms soon returned after going home. He was instructed by his PCP to return to ED today. He reports some associated chills but no fever. He denies any hematemesis, coffee ground emesis, hematochezia, melena, or abdominal pain. He denies any recent travel, change in medication, or sick contacts. He also reports some lightheadedness with sitting up or standing but denies any loss of consciousness. The patient was admitted to the hospital service at [facility] for further evaluation and treatment. Hospital Course 66 year old male with complicated past medical history notable for diabetes mellitus and rheumatoid arthritis presents with complaints of intractable nausea , vomiting and diarrhea for the past 12 days. # Acute Nausea, vomiting and diarrhea, present on admission. Now resolved with hydration - Of unclear etiology. ? infection vs possible diabetic gastroparesis vs other - The stool PCR negative - He is now tolerating a regular diet and is anxious to be discharged home # Diabetes mellitus type 2 - will resume the patient's long-acting insulin if able to tolerate a regular diet at home - Patient was covered with sliding scale insulin coverage while hospitalized. - Patient's HgA1C 6.1 # Rheumatoid arthritis. chronic. presume stable - We will c/w home meds - We will hold prophylactic Bactrim for now # Acute on chronic lumbago - Patient is due for back surgery in coming days - We will c/w home dose methadone - We will continue to recommend supportive care # History of coronary artery disease. stable - We will c/w home meds as tolerated # Acute hypokalemia and hypomagnesemia. Present on admission - We have repleted and will need follow-up as an outpatient # Acute lactic acidosis. Present on admission - Resolved with IVF now. # History of BPH - We will c/w Flomax Disposition: We will discharge home with his today. Exam Vital Signs (Last) Date Time Temp Pulse Resp B/P Pulse Ox O2 Delivery O2 Flow Rate FiO2 12/15/16 07:55 36.7 79 14 110/74 97 Room Air Exam General: Patient is in no apparent distress. He is very anxious for discharge HEENT: Head is atraumatic and normocephalic. Eyes: Pupils are equally round and reactive to light and accommodation. Extraocular muscles are intact. Sclera are white, anicteric. Subconjunctival mucosa is pink. Ears and nose are unremarkable. Oropharynx: There is no mucosal lesions, there is no thrush, there is no pharyngitis. Neck: Is supple, there are no nodes, or masses or tenderness. Chest: Is clear to auscultation and percussion. There are no rales, rhonchi, wheezes or rubs. Heart: Rate, rhythm is regular. There is no murmur, rub or gallop. Abdomen: Good bowel sounds are present. Abdomen is mildly obese, soft, nontender, no organomegaly or masses were appreciated. Extremities: Are symmetrical and well perfused. There is no edema, there is no cellulitis, no rash. Neurologic: There are no focal neurological deficits. Cranial nerves II through XII are intact. There are no sensory or motor deficits. Psychiatric: Patients mood is calm and shows no sign of agitation. Genital: Deferred Rectal: Deferred Test 12/12/16 11:04 12/12/16 15:07 12/12/16 20:49 12/13/16 07:50 Hemoglobin A1c 6.1% (4.8-5.6) Lactic Acid Level 1.2mmol/L (0.4-2.0) Urine Color Yellow (YELLOW) Urine Appearance Clear (CLEAR,HAZY) Urine pH 6.0 (5.0-8.0) Urine Specific [place] 1.010 (1.003-1.035) Urine Protein Negativemg/dL (NEG,TRACE) Urine Glucose (UA) Negativemg/dL (NEGATIVE) Urine Ketones Negativemg/dL (NEGATIVE) Urine Occult Blood Negative (NEGATIVE) Urine Nitrite Negative (NEGATIVE) Urine Bilirubin Negative (NEGATIVE) Urine Urobilinogen Normalmg/dL (NORMAL) Urine Leukocyte Esterase Negative (NEGATIVE) Urine RBC 0-2/hpf (0-2) Urine WBC 0-5/hpf (0-5) Urine Epithelial Cells Occasional/hpf (NONE-MOD) Urine Crystals None seen (NONE SEEN) Urine Bacteria None/hpf (NONE-FEW) Urine Hyaline Casts None/lpf (NONE) Urine Granular Casts None seen (NONE SEEN) Urine Waxy Casts None seen (NONE SEEN) Urine Red Blood Cell Casts None seen (NONE SEEN) Urine White Blood Cell Casts None seen (NONE SEEN) Urine Mucus None seen (None Seen) Urine Trichomonas None seen (NONE SEEN) Urine Yeast None (NONE SEEN) Urinalysis Comment None Urine Culture Reflexed Not indicated Prothrombin Time 11.5sec (8.1-12.5) Prothromb Time International Ratio 1.07ratio Activated Partial Thromboplast Time 32.4sec (22.8-33.0) Test 12/15/16 05:40 White Blood Count 4.1th/mm3 (3.8-10.1) Red Blood Count 4.38mil/mm3 (4.40-5.80) Hemoglobin 13.0g/dL (13.8-17.2) Hematocrit 35.8% (41.0-50.0) Mean Corpuscular Volume 81.7fL (81-100) Mean Corpuscular Hemoglobin 29.7pg (27.0-35.0) Mean Corpuscular Hemoglobin Concent 36.3% (32.0-37.0) Red Cell Distribution Width 14.8% (12.3-15.4) Platelet Count 123bil/L (150-400) Neutrophils (%) (Auto) 48.3% (40-74) Lymphocytes (%) (Auto) 25.0% (14-46) Monocytes (%) (Auto) 14.2% (4-12) Eosinophils (%) (Auto) 10.5% (0-5) Basophils (%) (Auto) 2.0% (0-3) Sodium Level 136mEq/L (134-144) Potassium Level 4.0mEq/L (3.5-5.2) Chloride Level 101mEq/L (97-108) Carbon Dioxide Level 23mmol/L (18-29) Blood Urea Nitrogen 8mg/dL (8-27) Creatinine 0.65mg/dL (0.76-1.27) Estimat Glomerular Filtration Rate 130mL/min (>59) Glucose Level 123mg/dL (60-99) Calcium Level 7.6mg/dL (8.5-10.1) Magnesium Level 1.9mg/dL (1.6-2.6) Total Bilirubin 0.2mg/dL (0.0-1.2) Aspartate Amino Transf (AST/SGOT) 24U/L (0-50) Alanine Aminotransferase (ALT/SGPT) 8U/L (0-44) Alkaline Phosphatase 96U/L (25-160) Total Protein 4.3g/dL (6.4-8.4) Albumin 2.4g/dL (3.4-5.0) Microbiology Results Stool for gastrointestinal PCR panel is negative Discharge Medications Discharge Medications Cholecalciferol (Vitamin D3) (Vitamin D3) 2,000 Unit Capsule 4,000 UNIT PO QPM ( Reported) Colchicine (Colchicine) 0.6 Mg Capsule 0.6 MG PO BIDWM (Reported) Cyclosporine (Restasis) 1 Each Droperette 1 EACH BOTH_EYES BID (Reported) Gabapentin (Gabapentin) 300 Mg Capsule 300 MG PO BID (Reported) Insulin Glargine (Lantus U100 Solostar Insulin Pen) 100 Unit/1 Ml Insuln.pen 48 UNIT SUBQ QPM-INSULIN (Reported) Lactobacillus Combination No.4 (Probiotic) 1 Each Capsule 1 EACH PO DAILY ( Reported) Levothyroxine (Levothyroxine) 50 Mcg Tablet 50 MCG PO DAILY (Reported) Methadone (Methadone) 5 Mg Tablet 5 MG PO TID (Reported) Metoprolol Succinate ER (Metoprolol Succinate ER) 50 Mg Tab.er.24h 50 MG QPM ( Reported) Pantoprazole DR (Pantoprazole DR) 40 Mg Tablet.dr 40 MG PO QPM (Reported) Polyethylene Glycol 3350 (Miralax) 17 Gm Powd.pack 17 GM PO DAILY (Reported) Potassium Chloride ER (Klor-Con 10) 10 Meq Tablet.er 10 MEQ PO QPM (Reported) Pravastatin (Pravastatin) 80 Mg Tablet 80 MG PO HS (Reported) Ranitidine (Zantac) 300 Mg Tab 300 MG PO HS (Reported) Tamsulosin ER (Tamsulosin ER) 0.4 Mg Cap.er.24h 0.8 MG PO QPM (Reported) Torsemide (Torsemide) 20 Mg Tablet 20 MG PO DAILY (Reported) As needed Insulin Lispro (HumaLOG U100 Insulin Pen) 100 Unit/1 Ml Insuln.pen 0-8 UNITS SUBQ TIDWM PRN PRN hyperglycemia (Reported) Ipratropium [place] (Ipratropium [place] 0.06% Nasal) 15 Ml [place] 1 SPRAY NASAL TID PRN PRN nasal congestion (Reported) oxyCODONE-Acetaminophen 5-325 mg (oxyCODONE-Acetaminophen 5-325 mg) 1 Each Tablet 1-2 TABLET PO q6 hrs PRN PRN For Pain (Reported) Followup Plan Disposition: He is being discharged home with his . Discharge Diet: Heart Healthy Discharge Activity: No restrictions (MAY RESUME USUAL ACTIVITIES GRADUALLY TOLERATED) Follow-up Provider: Darrion Villa MD Follow-up with PCP in: 1 week Time spent Time spent on discharging this patient was greater than 35 minutes, over half of which was involved in counseling and coordination of care. Main Mack MD Dec 15, 2016 21:56
== END 2016-12-15 12:23 | disposition home or self-care (01) ==
LOC: SED 10:14 → MOC 15:30
PROVIDERS: ADMIT Internal Medicine; ATTEND Internal Medicine
DX: K52.9 Noninfective gastroenteritis and colitis, unspecified (principal); E87.6 Hypokalemia; E83.42 Hypomagnesemia; E87.2 Acidosis; E11.9 Type 2 diabetes mellitus without complications; Z79.4 Long term (current) use of insulin; M06.9 Rheumatoid arthritis, unspecified; G89.29 Other chronic pain; M54.5 Low back pain; Z79.891 Long term (current) use of opiate analgesic; I10 Essential (primary) hypertension; I25.10 Atherosclerotic heart disease of native coronary artery without angina pectoris; Z95.5 Presence of coronary angioplasty implant and graft; Z79.52 Long term (current) use of systemic steroids
CPT/HCPCS: 36415; 74177; 80048; 80053; 81000; 83036; 83605; 83735; 85025; 85610; 85730; 87507; 96361; 96374; 99285; G0378; J1815; J2270; J2765; J3475; J3480; J7030; J7042; Q9967